=== PATIENT | female | born 1955 | race Caucasian/White ===

== ENCOUNTER → 2020-04-16 | Outpatient (CLI) | payer OTHER | LOC: COL.RAD 09:47 | DX: G52.1 Disorders of glossopharyngeal nerve (principal) | CPT/HCPCS: A9585 ==

== ENCOUNTER → 2020-12-02 | Outpatient (CLI) | payer MEDICARE | LOC: COL.RAD 09:46 | DX: G52.1 Disorders of glossopharyngeal nerve (principal) | CPT/HCPCS: A9585 ==

== ENCOUNTER → 2021-04-01 | Outpatient (CLI) | payer MEDICARE | LOC: MC.RAD 03-25 09:45 | DX: Z12.31 Encounter for screening mammogram for malignant neoplasm of breast (principal) ==

== ENCOUNTER → 2021-11-12 | Outpatient (CLI) | payer MEDICARE | LOC: COL.RAD 09:25 | DX: K11.20 Sialoadenitis, unspecified (principal); K11.8 Other diseases of salivary glands; M26.622 Arthralgia of left temporomandibular joint ==

== ENCOUNTER → 2023-01-08 | Outpatient (CLI) | payer MEDICARE | LOC: COL.PUL 10:00 | DX: R09.82 Postnasal drip (principal) | CPT/HCPCS: J7674 ==

== ENCOUNTER → 2023-08-31 | Outpatient (CLI) | payer MEDICARE | LOC: MC.RAD 09:34 | DX: Z12.31 Encounter for screening mammogram for malignant neoplasm of breast (principal) ==